=== PATIENT | female | born 1980 | race Native Hawaiian/Other Pacific Islander ===

== ENCOUNTER → 2016-05-30 | Outpatient (CLI) | payer OTHER ==
[~2016-05-30] MED LIST: FRS325T PO; IBP800T PO; PREN1TAB39 PO
--- OUTSIDE RECORDS SUMMARY | 2016-05-30 16:50 | XMS REPORT | Continuity of Care Document ---
Author Author [facility] Organization [facility] Address Unknown Phone Unavailable Allergies Active Description Code Type Severity Reaction Onset Reported/Identified Relationship to Patient Clinical Status Yes No Known Drug Allergies [id number] Drug Allergy Unknown N/ A 03/29/2010 Medications Problems Date Dx Coded Attending Type Code Diagnosis Diagnosed By 02/02/2009 438.85 Vertigo 02/02/2009 784.0 Headache 02/02/2009 438.85 Vertigo 02/02/2009 784.0 Headache 02/02/2009 438.85 Vertigo 02/02/2009 784.0 Headache 02/02/2009 438.85 Vertigo 02/02/2009 784.0 Headache 02/02/2009 438.85 Vertigo 02/02/2009 784.0 Headache 02/02/2009 438.85 Vertigo 02/02/2009 784.0 Headache 02/02/2009 438.85 Vertigo 02/02/2009 784.0 Headache 02/02/2009 438.85 Vertigo 02/02/2009 784.0 Headache 02/02/2009 438.85 Vertigo 02/02/2009 784.0 Headache 02/02/2009 WHITE DDS, JUAN JOSE J 438.85 Vertigo 02/02/2009 WHITE DDS, JUAN JOSE J 784.0 Headache 02/02/2009 MADL COOK MORNING, SOFYA L 438.85 Vertigo 02/02/2009 MADL COOK MORNING, SOFYA L 784.0 Headache 02/02/2009 MADL COOK MORNING, SOFYA L 438.85 Vertigo 02/02/2009 MADL COOK MORNING, SOFYA L 784.0 Headache 02/02/2009 TOVAR DOTRIXIEA K 438.85 Vertigo 02/02/2009 TOVAR DOBUD K 784.0 Headache 08/18/2009 787.02 Nausea Alone 08/18/2009 V72.42 Test Positive Result 08/18/2009 787.02 Nausea Alone 08/18/2009 V72.42 Test Positive Result 08/18/2009 787.02 Nausea Alone 08/18/2009 V72.42 Test Positive Result 08/18/2009 787.02 Nausea Alone 08/18/2009 V72.42 Test Positive Result 08/18/2009 787.02 Nausea Alone 08/18/2009 V72.42 Test Positive Result 08/18/2009 787.02 Nausea Alone 08/18/2009 V72.42 Test Positive Result 08/18/2009 787.02 Nausea Alone 08/18/2009 V72.42 Test Positive Result 08/18/2009 787.02 Nausea Alone 08/18/2009 V72.42 Test Positive Result 08/18/2009 787.02 Nausea Alone 08/18/2009 V72.42 Test Positive Result 08/18/2009 WHITE DDS, JUAN JOSE J 787.02 Nausea Alone 08/18/2009 WHITE DDS, JUAN JOSE J V72.42 Test Positive Result 08/18/2009 MADL COOK MORNING, SOFYA L 787.02 Nausea Alone 08/18/2009 MADL COOK MORNING, SOFYA L V72.42 Test Positive Result 08/18/2009 MADL COOK MORNING, SOFYA L 787.02 Nausea Alone 08/18/2009 MADL COOK MORNING, SOFYA L V72.42 Test Positive Result 08/18/2009 TOVAR DO BUD K 787.02 Nausea Alone 08/18/2009 TOVAR DO, BUD K V72.42 Test Positive Result 09/08/2009 787.01 Nausea With Vomiting 09/08/2009 V22.1 Pc Other Normal 09/08/2009 787.01 Nausea With Vomiting 09/08/2009 V22.1 Pc Other Normal 09/08/2009 787.01 Nausea With Vomiting 09/08/2009 V22.1 Pc Other Normal 09/08/2009 787.01 Nausea With Vomiting 09/08/2009 V22.1 Pc Other Normal 09/08/2009 787.01 Nausea With Vomiting 09/08/2009 V22.1 Pc Other Normal 09/08/2009 787.01 Nausea With Vomiting 09/08/2009 V22.1 Pc Other Normal 09/08/2009 787.01 Nausea With Vomiting 09/08/2009 V22.1 Pc Other Normal 09/08/2009 787.01 Nausea With Vomiting 09/08/2009 V22.1 Pc Other Normal 09/08/2009 787.01 Nausea With Vomiting 09/08/2009 V22.1 Pc Other Normal 09/08/2009 WHITE DDS, JUAN JOSE J 787.01 Nausea With Vomiting 09/08/2009 WHITE DDS, JUAN JOSE J V22.1 Pc Other Normal 09/08/2009 MADL COOK MORNING, SOFYA L 787.01 Nausea With Vomiting 09/08/2009 MADL COOK MORNING, SOFYA L V22.1 Pc Other Normal 09/08/2009 MADL COOK MORNING, SOFYA L 787.01 Nausea With Vomiting 09/08/2009 MADL COOK MORNING, SOFYA L V22.1 Pc Other Normal 09/08/2009 TOVAR DOTRIXIEA K 787.01 Nausea With Vomiting 09/08/2009 TOVAR DOBUD K V22.1 Pc Other Normal 11/10/2009 079.98 Chlamydia 11/10/2009 V72.31 Cake Stripper Exam, Routine 11/10/2009 V74.5 Std Screen 11/10/2009 079.98 Chlamydia 11/10/2009 V72.31 Cake Stripper Exam, Routine 11/10/2009 V74.5 Std Screen 11/10/2009 079.98 Chlamydia 11/10/2009 V72.31 Cake Stripper Exam, Routine 11/10/2009 V74.5 Std Screen 11/10/2009 079.98 Chlamydia 11/10/2009 V72.31 Cake Stripper Exam, Routine 11/10/2009 V74.5 Std Screen 11/10/2009 079.98 Chlamydia 11/10/2009 V72.31 Cake Stripper Exam, Routine 11/10/2009 V74.5 Std Screen 11/10/2009 079.98 Chlamydia 11/10/2009 V72.31 Cake Stripper Exam, Routine 11/10/2009 V74.5 Std Screen 11/10/2009 079.98 Chlamydia 11/10/2009 V72.31 Cake Stripper Exam, Routine 11/10/2009 V74.5 Std Screen 11/10/2009 079.98 Chlamydia 11/10/2009 V72.31 Cake Stripper Exam, Routine 11/10/2009 V74.5 Std Screen 11/10/2009 079.98 Chlamydia 11/10/2009 V72.31 Cake Stripper Exam, Routine 11/10/2009 V74.5 Std Screen 11/10/2009 WHITE DDS, JUAN JOSE J 079.98 Chlamydia 11/10/2009 WHITE DDS, JUAN JOSE J V72.31 Cake Stripper Exam, Routine 11/10/2009 WHITE DDS, JUAN JOSE J V74.5 Std Screen 11/10/2009 MADL COOK MORNING, SOFYA L 079.98 Chlamydia 11/10/2009 MADL COOK MORNING, SOFYA L V72.31 Cake Stripper Exam, Routine 11/10/2009 MADL COOK MORNING, SOFYA L V74.5 Std Screen 11/10/2009 MADL COOK MORNING, SOFYA L 079.98 Chlamydia 11/10/2009 MADL COOK MORNING, SOFYA L V72.31 Cake Stripper Exam, Routine 11/10/2009 MADL COOK MORNING, SOFYA L V74.5 Std Screen 11/10/2009 TOVAR BUD NEWBY K 079.98 Chlamydia 11/10/2009 TOVAR DO BUD K V72.31 Cake Stripper Exam, Routine 11/10/2009 TOVAR DO BUD K V74.5 Std Screen 12/09/2009 V04.3 Rubella Non-immune - Need For Vaccination 12/09/2009 V04.3 Rubella Non-immune - Need For Vaccination 12/09/2009 V04.3 Rubella Non-immune - Need For Vaccination 12/09/2009 V04.3 Rubella Non-immune - Need For Vaccination 12/09/2009 V04.3 Rubella Non-immune - Need For Vaccination 12/09/2009 V04.3 Rubella Non-immune - Need For Vaccination 12/09/2009 V04.3 Rubella Non-immune - Need For Vaccination 12/09/2009 V04.3 Rubella Non-immune - Need For Vaccination 12/09/2009 V04.3 Rubella Non-immune - Need For Vaccination 12/09/2009 WHITE DDS, JUAN JOSE J V04.3 Rubella Non-immune - Need For Vaccination 12/09/2009 MADL COOK MORNING, SOFYA L V04.3 Rubella Non-immune - Need For Vaccination 12/09/2009 MADL COOK MORNING, SOFYA L V04.3 Rubella Non-immune - Need For Vaccination 12/09/2009 LA NEWBY BUD Tracey V04.3 Rubella Non-immune - Need For Vaccination 05/19/2010 V24.2 visit for: exam 05/19/2010 V72.31 ROUTINE PELVIC EXAM 05/19/2010 V74.5 visit for: screening exam bact/spirochetal venereal disease 05/19/2010 V24.2 visit for: exam 05/19/2010 V72.31 ROUTINE PELVIC EXAM 05/19/2010 V74.5 visit for: screening exam bact/spirochetal venereal disease 05/19/2010 V24.2 visit for: exam 05/19/2010 V72.31 ROUTINE PELVIC EXAM 05/19/2010 V74.5 visit for: screening exam bact/spirochetal venereal disease 05/19/2010 V24.2 visit for: exam 05/19/2010 V72.31 ROUTINE PELVIC EXAM 05/19/2010 V74.5 visit for: screening exam bact/spirochetal venereal disease 05/19/2010 V24.2 visit for: exam 05/19/2010 V72.31 ROUTINE PELVIC EXAM 05/19/2010 V74.5 visit for: screening exam bact/spirochetal venereal disease 05/19/2010 V24.2 VISIT FOR: EXAM 05/19/2010 V72.31 ROUTINE PELVIC EXAM 05/19/2010 V74.5 VISIT FOR: SCREENING EXAM BACT/SPIROCHETAL VENEREAL DISEASE 05/19/2010 V24.2 VISIT FOR: EXAM 05/19/2010 V72.31 ROUTINE PELVIC EXAM 05/19/2010 V74.5 VISIT FOR: SCREENING EXAM BACT/SPIROCHETAL VENEREAL DISEASE 05/19/2010 V24.2 VISIT FOR: EXAM 05/19/2010 V72.31 ROUTINE PELVIC EXAM 05/19/2010 V74.5 VISIT FOR: SCREENING EXAM BACT/SPIROCHETAL VENEREAL DISEASE 05/19/2010 V24.2 VISIT FOR: EXAM 05/19/2010 V72.31 ROUTINE PELVIC EXAM 05/19/2010 V74.5 VISIT FOR: SCREENING EXAM BACT/SPIROCHETAL VENEREAL DISEASE 05/19/2010 WHITE DDS, JUAN JOSE J V24.2 VISIT FOR: EXAM 05/19/2010 WHITE DDS, JUAN JOSE J V72.31 ROUTINE PELVIC EXAM 05/19/2010 WHITE DDS, JUAN JOSE J V74.5 VISIT FOR: SCREENING EXAM BACT/ SPIROCHETAL VENEREAL DISEASE 05/19/2010 MADL COOK MORNING, SOFYA L V24.2 VISIT FOR: EXAM 05/19/2010 MADL COOK MORNING, SOFYA L V72.31 ROUTINE PELVIC EXAM 05/19/2010 MADL COOK MORNING, SOFYA L V74.5 VISIT FOR: SCREENING EXAM BACT/SPIROCHETAL VENEREAL DISEASE 05/19/2010 MADL COOK MORNING, SOFYA L V24.2 VISIT FOR: EXAM 05/19/2010 MADL COOK MORNING, SOFYA L V72.31 ROUTINE PELVIC EXAM 05/19/2010 MADL COOK MORNING, SOFYA L V74.5 VISIT FOR: SCREENING EXAM BACT/SPIROCHETAL VENEREAL DISEASE 05/19/2010 BUD TOVAR DO K V24.2 VISIT FOR: EXAM 05/19/2010 BUD TOVAR DO V72.31 ROUTINE PELVIC EXAM 05/19/2010 BUD TOAVR DO K V74.5 VISIT FOR: SCREENING EXAM BACT/SPIROCHETAL VENEREAL DISEASE 06/11/2012 V72.42 TEST POSITIVE RESULT 06/11/2012 V72.42 TEST POSITIVE RESULT 06/11/2012 V72.42 TEST POSITIVE RESULT 06/11/2012 V72.42 TEST POSITIVE RESULT 06/11/2012 V72.42 TEST POSITIVE RESULT 06/11/2012 V72.42 TEST POSITIVE RESULT 06/11/2012 V72.42 TEST POSITIVE RESULT 06/11/2012 V72.42 TEST POSITIVE RESULT 06/11/2012 JUAN DESAISJUAN JOSE J V72.42 TEST POSITIVE RESULT 06/11/2012 MADL COOK MORNING, SOFYA L V72.42 TEST POSITIVE RESULT 06/11/2012 MADL COOK MORNING, SOFYA L V72.42 TEST POSITIVE RESULT 06/11/2012 BUD TOVAR DO K V72.42 TEST POSITIVE RESULT 06/15/2012 651.00 , HIGH RISK W/ MULTIPLE GESTATIONS 06/15/2012 651.00 , HIGH RISK W/ MULTIPLE GESTATIONS 06/15/2012 651.00 , HIGH RISK W/ MULTIPLE GESTATIONS 06/15/2012 651.00 , HIGH RISK W/ MULTIPLE GESTATIONS 06/15/2012 651.00 , HIGH RISK W/ MULTIPLE GESTATIONS 06/15/2012 651.00 , HIGH RISK W/ MULTIPLE GESTATIONS 06/15/2012 651.00 , HIGH RISK W/ MULTIPLE GESTATIONS 06/15/2012 JUAN JOSE MARTINEZ DDS 651.00 , HIGH RISK W/ MULTIPLE GESTATIONS 06/15/2012 MADL COOK MORNING, SOFYA L 651.00 , HIGH RISK W/ MULTIPLE GESTATIONS 06/15/2012 MADL COOK MORNING, SOFYA L 651.00 , HIGH RISK W/ MULTIPLE GESTATIONS 06/15/2012 BUD TOVAR DO 651.00 , HIGH RISK W/ MULTIPLE GESTATIONS 06/29/2012 V23.7 , HIGH RISK W/ INSUFFICIENT CARE 06/29/2012 V76.2 CERVICAL CANCER SCREENING (PAP SMEAR) 06/29/2012 V23.7 , HIGH RISK W/ INSUFFICIENT CARE 06/29/2012 V76.2 CERVICAL CANCER SCREENING (PAP SMEAR) 06/29/2012 V23.7 , HIGH RISK W/ INSUFFICIENT CARE 06/29/2012 V76.2 CERVICAL CANCER SCREENING (PAP SMEAR) 06/29/2012 V23.7 , HIGH RISK W/ INSUFFICIENT CARE 06/29/2012 V76.2 CERVICAL CANCER SCREENING (PAP SMEAR) 06/29/2012 V23.7 , HIGH RISK W/ INSUFFICIENT CARE 06/29/2012 V76.2 CERVICAL CANCER SCREENING (PAP SMEAR) 06/29/2012 V23.7 , HIGH RISK W/ INSUFFICIENT CARE 06/29/2012 V76.2 CERVICAL CANCER SCREENING (PAP SMEAR) 06/29/2012 JUAN JOSE MARTINEZ DDS V23.7 , HIGH RISK W/ INSUFFICIENT CARE 06/29/2012 JUAN JOSE MARTINEZ DDS V76.2 CERVICAL CANCER SCREENING (PAP SMEAR) 06/29/2012 MADL COOK MORNING, SOFYA L V23.7 , HIGH RISK W/ INSUFFICIENT CARE 06/29/2012 JODI COOK MORNING, SOFYA L V76.2 CERVICAL CANCER SCREENING (PAP SMEAR) 06/29/2012 MADL COOK MORNING, SOFYA L V23.7 , HIGH RISK W/ INSUFFICIENT CARE 06/29/2012 MADL COOK MORNING, SOFYA L V76.2 CERVICAL CANCER SCREENING (PAP SMEAR) 06/29/2012 BUD TOVAR DO V23.7 , HIGH RISK W/ INSUFFICIENT CARE 06/29/2012 BUD TOVAR DO V76.2 CERVICAL CANCER SCREENING (PAP SMEAR) 07/13/2012 V06.1 TDAP DX 07/13/2012 V77.1 DIABETES SCREENING 07/13/2012 V06.1 TDAP DX 07/13/2012 V77.1 DIABETES SCREENING 07/13/2012 V06.1 TDAP DX 07/13/2012 V77.1 DIABETES SCREENING 07/13/2012 V06.1 TDAP DX 07/13/2012 V77.1 DIABETES SCREENING 07/13/2012 V06.1 TDAP DX 07/13/2012 V77.1 DIABETES SCREENING 07/13/2012 WHITE DDSJUAN JOSE J V06.1 TDAP DX 07/13/2012 WHITE DDSJUAN JOSE J V77.1 DIABETES SCREENING 07/13/2012 MADL COOK MORNING, SOFYA L V06.1 TDAP DX 07/13/2012 MADL COOK MORNING, SOFYA L V77.1 DIABETES SCREENING 07/13/2012 MADL COOK MORNING, SOFYA L V06.1 TDAP DX 07/13/2012 MADL COOK MORNING, SOFYA L V77.1 DIABETES SCREENING 07/13/2012 BUD TOVAR DO V06.1 TDAP DX 07/13/2012 BUD TOVAR DO V77.1 DIABETES SCREENING 08/08/2012 623.5 LEUKORRHEA NOT SPECIFIED INFECTIVE 08/08/2012 623.5 LEUKORRHEA NOT SPECIFIED INFECTIVE 08/08/2012 623.5 LEUKORRHEA NOT SPECIFIED INFECTIVE 08/08/2012 623.5 LEUKORRHEA NOT SPECIFIED INFECTIVE 08/08/2012 WHITE DDS, JUAN JOSE J 623.5 LEUKORRHEA NOT SPECIFIED INFECTIVE 08/08/2012 MADL COOK MORNING, SOFYA L 623.5 LEUKORRHEA NOT SPECIFIED INFECTIVE 08/08/2012 MADL COOK MORNING, SOFYA L 623.5 LEUKORRHEA NOT SPECIFIED INFECTIVE 08/08/2012 BUD TOVAR DO 623.5 LEUKORRHEA NOT SPECIFIED INFECTIVE 08/22/2012 V28.6 GBS SCREENING 08/22/2012 V28.6 GBS SCREENING 08/22/2012 V28.6 GBS SCREENING 08/22/2012 JUAN JOSE MARTINEZ DDS V28.6 GBS SCREENING 08/22/2012 JODI PERALTASOFYA Wong L V28.6 GBS SCREENING 08/22/2012 MADTeo COOK MORNING, SOFYA L V28.6 GBS SCREENING 08/22/2012 BUD TOVAR DO V28.6 GBS SCREENING 09/05/2012 V02.51 GBS - CARRIER OR SUSPECTED CARRIER 09/05/2012 V02.51 GBS - CARRIER OR SUSPECTED CARRIER 09/05/2012 JUAN JOSE MARTINEZ DDS V02.51 GBS - CARRIER OR SUSPECTED CARRIER 09/05/2012 [facility] WongA L V02.51 GBS - CARRIER OR SUSPECTED CARRIER 09/05/2012 [facility] COOK [facility]ORN[facility], SOFYA L V02.51 GBS - CARRIER OR SUSPECTED CARRIER 09/05/2012 BUD TOVAR DO V02.51 GBS - CARRIER OR SUSPECTED CARRIER 09/28/2012 JUAN JOSE MARTINEZ DDS 646.60 COMPL OF - UTI 09/28/2012 ALLISONTeo COOK MORNINGSOFYA Wong L 646.60 COMPL OF - UTI 09/28/2012 [place]ISON[place] [place] WongA L 646.60 COMPL OF - UTI 09/28/2012 BUD TOVAR DO 646.60 COMPL OF - UTI 09/30/2012 BUD TOVAR DO Ot 285.9 ANEMIA NOS 09/30/2012 BUD TOVAR DO Ot 648.22 ANEMIA-DELIVERED W P/P 09/30/2012 BUD TOVAR DO Ot 648.91 OTH CURR COND-DELIVERED 09/30/2012 BUD TOVAR DO Ot 664.11 DEL W 2 DEG LACERAT-DEL 09/30/2012 BUD TOVAR DO Ot V02.51 GROUP B STREPT CARRIER/SUSPECTED CARRIER 09/30/2012 BUD TOVAR DO Ot V06.4 [id number] 09/30/2012 TOVAR DO, BUD K Ot V27.0 DELIVER-SINGLE LIVEBORN 01/15/2014 MADL COOK MORNING, SOFYA L 278.02 OVERWEIGHT 01/15/2014 MADL COOK MORNING, SOFYA L 709.01 VITILIGO 01/15/2014 MADL COOK MORNING, SOFYA L 724.2 BACK PAIN, LOWER 01/15/2014 MADL COOK MORNING, SOFYA L 780.79 OTHER MALAISE AND FATIGUE 01/15/2014 MADL COOK MORNING, SOFYA L 789.66 ABDOMINAL TENDERNESS EPIGASTRIC 01/15/2014 MADL COOK MORNING, SOFYA L 278.02 OVERWEIGHT 01/15/2014 MADL COOK MORNING, OSFYA L 709.01 VITILIGO 01/15/2014 MADL COOK MORNING, SOFYA L 724.2 BACK PAIN, LOWER 01/15/2014 MADL COOK MORNING, SOFYA L 780.79 OTHER MALAISE AND FATIGUE 01/15/2014 MADL COOK MORNING, SOFYA L 789.66 ABDOMINAL TENDERNESS EPIGASTRIC 01/15/2014 TOVAR DO, BUD K 278.02 OVERWEIGHT 01/15/2014 TOVAR DO, BUD K 709.01 VITILIGO 01/15/2014 TOVAR DO, BUD K 724.2 BACK PAIN, LOWER 01/15/2014 TOVAR DO, BUD K 780.79 OTHER MALAISE AND FATIGUE 01/15/2014 TOVAR DO, BUD K 789.66 ABDOMINAL TENDERNESS EPIGASTRIC Procedures Code Description [place] [address] URINE TEST (IN-HOUSE) 06/11/2012 45930 ROUTINE VENIPUNCTURE 06/15/2012 91843 US OB - COMPLETE >14 WEEKS 06/15/2012 39443 SYPHILLIS-STATE LAB 06/15/2012 08933 RUBELLA ANTIBODY, IGG 06/15/2012 06828 ANTIBODY SCREEN (order) 06/15/2012 17454 HEP B SURFACE ANTIGEN (STATE) 06/15/2012 68122 UA OB DIP 2012 07991 CBC 06/15/2012 24399 TSH 06/15/2012 93889 BLOOD TYPE/Rh FACTOR 06/15/2012 [id number] ANTIBODY SCREEN (RESULT ONLY) 06/15/2012 13625 HIV ANTIBODIES (RML) 06/15/2012 02076 CULTURE URINE 79820 UA OB DIP 2012 08233 TRICHOMONAS (IN-HOUSE) 06/29/2012 64954 GC/CHLAM PROBE (STATE) 07/02/2012 34189 PAP SMEAR 2012 Q0091 PAP SMEAR OBTAIN SMEAR 07/02/2012 42322 CULTURE UROGENITAL 07/02/2012 52964 ROUTINE VENIPUNCTURE 07/13/2012 22549 UA OB DIP 2012 91780 GLUCOSE SAJI 1 HOUR 07/13/2012 43532 UA OB DIP 2012 54785 CULTURE UROGENITAL 08/11/2012 41568 UA OB DIP 2012 43180 CULTURE GROUP B STREP VAG 08/24/2012 91792 UA OB DIP 2012 18095 UA OB DIP 2012 22857 UA OB DIP 2012 55851 NON-STRESS TEST 09/17/2012 75.69 REPAIR OB LACERATION NEC 09/29/2012 38814 XRAY LUMBAR SPINE 2 OR 3 VIEWS 01/15/2014 87176 ROUTINE VENIPUNCTURE 01/16/2014 14787 CBC 01/16/2014 1222858 GFR CALC (RESULT ONLY) 01/16/2014 37018 CMP 01/16/2014 56722 H PYLORI (IN-HOUSE) 01/16/2014 55781 LIPASE 2013 45571 VITAMIN D 25-HYDROXY (D2,D3, TOTAL) 01/16/2014 THYANA THYROID ANALYZER 01/16/2014 Results Encounters ACCT No. Visit Date/Time Discharge Status Pt. Type Provider Facility Loc./Unit Complaint [id number] 09/29/2012 01:16:00 2012 14:20:00 DIS Inpatient BUD TOVAR DO [facility] WS INDUCTION [id number] 05/30/2016 16:45:00 ACT Outpatient VIDYA YOUNG, LINDSEY Prather [facility] RAD DATING
--- NOTE | 2016-05-30 17:34 | Diagnostic Imaging Report ---
INDICATION: Evaluate size and dates. COMPARISON: None. DISCUSSION: Transabdominal sonographic evaluation of the gravid uterus was performed. Single live intrauterine at 17 weeks 0 days by sonographic measurements. EDC by today's ultrasound is 11/07/2016. The cervix measures 3.9 cm. heart rate measures 153 beats per minute. Biparietal diameter measures 3.8 cm. Head circumference measures 13.8 cm. Abdominal circumference measures 10.5 cm. Femur length measures 2.1 cm. Grade 1 placenta is located posteriorly with no placenta previa. IMPRESSION: 1. Single live intrauterine at 17 weeks 0 days by sonographic measurements. Dictated by: Dictated on workstation # [id number]
== END ==
LOC: RAD 16:45
PROVIDERS: ATTEND Family Medicine
DX: Z34.82 Encounter for supervision of other normal pregnancy, second trimester (principal)
CPT/HCPCS: 76805

== ENCOUNTER → 2016-08-23 | Outpatient (CLI) | payer OTHER ==
--- NOTE | 2016-08-23 14:46 | Diagnostic Imaging Report ---
INDICATION: survey. TECHNIQUE: Multiple real-time grayscale images were obtained over the gravid uterus. COMPARISON: 05/30/2016. FINDINGS: The heart rate is 142 BPM. The placenta is fundal. No placenta previa. Adequate amniotic fluid is seen. The TARAS is 10.8 cm. The cervix is 5.3 cm in length and is closed. The lateral ventricle is normal in size. The stomach, gallbladder, and 2 umbilical arteries are demonstrated. The four-chamber view, spine, and cord insertion are not well seen due to position. No hydronephrosis or cystic mass at the level of the kidneys is demonstrated. Biometrical measurements are as follows: Biparietal 7.63 cm, age 30 weeks 5 days. Head circumference 27.72 cm, age 30 weeks 3 days. Abdominal circumference 24.74 cm, age 29 weeks 0 days. Femur length 5.66 cm, age 29 weeks 6 days. Sonographic estimate age: 30 weeks 0 days. The sonographic age compares to a gestational age of 29 weeks and 1 day based on the LUIS of 11/07/2016. Sonographic estimated date of delivery: 11/01/2016. Estimated Weight: 1398 gm (+/- 204 gm). LMP percentile: 49%. heart rate: 142 beats per minute. number: 1 of 1. IMPRESSION: The four-chamber view, spine, and cord insertion are not well seen due to position. Consider a followup study for reevaluation. Dictated by: Dictated on workstation # [id number]
== END ==
LOC: RAD 10:48
PROVIDERS: ATTEND Family Medicine
DX: Z34.83 Encounter for supervision of other normal pregnancy, third trimester (principal); Z3A.30 30 weeks gestation of pregnancy
CPT/HCPCS: 76805

== ENCOUNTER → 2016-09-23 | Outpatient (CLI) | payer OTHER | LOC: LAB 10:35 | PROVIDERS: ATTEND Family Medicine | DX: O99.810 Abnormal glucose complicating pregnancy (principal); Z3A.00 Weeks of gestation of pregnancy not specified | CPT/HCPCS: 36415; 82951; 82952; 82962 ==

== ENCOUNTER → 2016-09-23 | Outpatient (CLI) | payer OTHER ==
--- NOTE | 2016-09-23 12:30 | Diagnostic Imaging Report ---
INDICATION: Incomplete survey, followup for spine, four-chamber view and cord insertion. TECHNIQUE: Multiple real-time grayscale images were obtained over the gravid uterus. COMPARISON: 08/23/2016. FINDINGS: heart rate is 138 beats minute. The placenta is posterior. No placenta previa. position is cephalic. The cervix is not well seen but appears to be closed and estimated length is around 4 cm. The cord insertion is still not well seen due to position. The four-chamber view and spine are better seen compared to the prior study with no definite abnormality. IMPRESSION: The four-chamber view and spine are better seen compared to the previous exam with no definite abnormality. The cord insertion is still not well seen. Dictated by: Dictated on workstation # [id number]
== END ==
LOC: RAD 10:44
PROVIDERS: ATTEND Family Medicine
DX: Z36 Encounter for antenatal screening of mother (principal); Z3A.00 Weeks of gestation of pregnancy not specified
CPT/HCPCS: 76816

== ENCOUNTER → 2016-11-04 | Outpatient (CLI) | payer OTHER, MEDICAID ==
[~2016-11-04] MED LIST changes: +HYDR-3812 PO; +IBUP-1773 PO
[2016-11-04 16:13] LABS: RED BLOOD COUNT 4.07 10^6/uL (4.35-5.85); RED CELL DISTRIBUTION WIDTH 13.4 % (10.0-14.5); WHITE BLOOD COUNT 8.7 10^3/uL (4.3-11.0)
[2016-11-04 16:34] LABS: ALANINE AMINOTRANSFERASE 7 U/L (0-55); ALBUMIN 3.1 GM/DL (3.2-4.5); ANION GAP 10 MMOL/L (5-14); ASPARTATE AMINO TRANSFERASE 14 U/L (5-34); BILIRUBIN,TOTAL 0.3 MG/DL (0.1-1.0); BLOOD UREA NITROGEN 8 MG/DL (7-18); BUN/CREATININE RATIO 13; CALCIUM 9.6 MG/DL (8.5-10.1); CARBON DIOXIDE 23 MMOL/L (21-32); CHLORIDE 103 MMOL/L (98-107); CREATININE SERUM 0.62 MG/DL (0.60-1.30); GFR ESTIMATED > 60; GLUCOSE 84 MG/DL (70-105); LACTATE DEHYDROGENASE 203 U/L (125-220); POTASSIUM 3.8 MMOL/L (3.6-5.0); SODIUM 136 MMOL/L (135-145); TOTAL PROTEIN 6.8 GM/DL (6.4-8.2); URIC ACID 5.1 MG/DL (2.6-7.2)
[2016-11-04 16:35] LABS: PROTEIN/CREATININE RATIO 1.92
== END ==
LOC: LAB 15:46
PROVIDERS: ATTEND Family Medicine
DX: O12.13 Gestational proteinuria, third trimester (principal); Z3A.00 Weeks of gestation of pregnancy not specified
CPT/HCPCS: 36415; 80053; 82570; 83615; 84156; 84550; 85027

== ENCOUNTER 2016-11-07 00:10 | Inpatient (IN) | payer OTHER, MEDICAID ==
[2016-11-07] VITALS (11 sets, daily range): BP systolic 118–142; BP diastolic 60–79
[~2016-11-07] VITALS: Ht 165.1 cm; Wt 96.6 kg
[~2016-11-07 00:10] MED LIST changes: -HYDR-3812 PO; -IBUP-1773 PO
[2016-11-07] MEDS ORDERED: OXYTOCIN/NORMAL SALINE 500 ML IV ONE (00:55)
[2016-11-07] MEDS ORDERED: D5 LR IV SOLUTION 1,000 ML IV ONE (00:55)
[2016-11-07] MEDS ORDERED: MEPIVACAINE (CARBOCAINE) 2% 50 ML VIAL ONE (00:56)
[2016-11-07] MEDS ORDERED: D5 LR IV SOLUTION 1,000 ML IV SCH (01:05)
--- NOTE | 2016-11-07 01:05 | History & Physical-OB ---
OB - Chief Complaint & HPI Date/Time Date of Admission: Date of Admission: Nov 07, 2016 at 00:11 Time Seen by Provider: 01:00 Chief Complaint/History OB-Reason for Admission/Chief: Onset of Labor Hx : 5 Hx Para: 4 Expected Date of Delivery: Nov 07, 2016 Gestational Age in Weeks: 40 Gestational Age in Days: 0 Admission Nurse Assessment Rev: Yes History of Labs GBS negative at 36 weeks gestation Allergies and Home Medications Allergies Coded Allergies: No Known Drug Allergies (Unverified , 03/29/10) Home Medications Ferrous Sulfate 325 Mg Tablet, 1 TAB PO BID, #30 (Reported) Ibuprofen 800 Mg Tab, 800 MG PO BID, #20 Ref 0 Prescribed by: ZULAY URENA on 09/30/12 1140 Vits W-Ca,Fe,Fa(<1MG) 1 Each Tablet, 1 EACH PO DAILY, (Reported) OB - History Hx of Present Care: Yes Ultrasounds: Normal mid trimester US Obstetrical Complications: None Medical Complications: None Obstetrical History Hx Termination: No Hx Multiple Gestation: No Hx Stillbirth: No Hx Complication: No Hx Induced Hypertens: No Hx Maternal Gestational Diabet: No Delivery History Hx Dystocia: No Hx Large For Gestational Age I: No Hx Small for Gestational Age I: No Hx Section: No Hx Vaginal Delivery Post C-Sec: No Hx Blood Disorders: No Patient Past Medical History no chronic medical problems OB - Admission Exam Physical Exam Date Seen by Provider: Nov 07, 2016 Time Seen by Provider: 01:00 HEENT: Moist Membranes Heart: Rhythm Normal Lungs: Clear Abdomen: Gravid Cervical Dilatation: 8cm Effacement: 100% Station: -2 Membranes: Intact Decelerations: No Decelerations Short Term Variability: Present Refrigerator Mover Variability: Average (6-25) Contractions on Admission: < 5 Minutes Apart Date/Time Contractions Began;: 1999 Intensity: Moderate OB - Assessment/Plan/Diagnosis Assessment Assessment: active labor (at 40 weeks) Plan Plan: Other (labor managment) LINDSEY DASILVA MD Nov 07, 2016 01:05
[2016-11-07 01:15] LABS: BASOPHILS % (AUTO) 0 % (0-10); EOSINOPHILS # (AUTO) 0.2 10^3/uL (0.0-0.3); EOSINOPHILS % (AUTO) 1 % (0-10); LYMPHOCYTES # (AUTO) 2.7 X 10^3 (1.0-4.0); LYMPHOCYTES % (AUTO) 21 % (12-44); MEAN CORPUSCULAR HEMOGLOBIN 29 PG (25-34); MEAN CORPUSCULAR HGB CONC 33 G/DL (32-36); MEAN CORPUSCULAR VOLUME 88 FL (80-99); MEAN PLATELET VOLUME 11.8 FL (7.4-10.4); MONOCYTES # (AUTO) 0.7 X 10^3 (0.0-1.0); MONOCYTES % (AUTO) 5 % (0-12); NEUTROPHILS # (AUTO) 9.2 X 10^3 (1.8-7.8); NEUTROPHILS % (AUTO) 72 % (42-75); PLATELET COUNT 221 10^3/uL (130-400); RED BLOOD COUNT 4.35 10^6/uL (4.35-5.85); RED CELL DISTRIBUTION WIDTH 13.5 % (10.0-14.5); WHITE BLOOD COUNT 12.8 10^3/uL (4.3-11.0)
--- NOTE | 2016-11-07 01:40 | OB Labor & Delivery Record ---
L&D History Date of Service Date of Service: Nov 07, 2016 History Expected Date of Delivery: Nov 07, 2016 Gestational Age in Weeks: 40 Hx : 5 Hx Para: 4 Complications Events: Routine care Operative Indications (Cesarea: N/A-Vaginal Delivery Intrapartal Events: None L&D Stage1 Stage One Onset of Labor - Date: Nov 07, 2016 Onset of Labor - Time: 20:00 Monitors and Tracing Monitor Mode: Internal Monitor Accelerations: Uniform Monitor Decelerations: None Water Control Supervisor Variability: Average (6-10) Short Term Variability: Present Presentation: Vertex Signs of Distress by FHT Signs of Distress no Rupture of Membranes Spontaneous Ruture of Membrane: No Amniotic Membrane Rupture Time: 01:00 Amniotic Membrane Fluid Desc.: Clear L&D Stage2 Stage Two Stage II Date: Nov 07, 2016 Stage II Time: 01:19 Monitors and Tracing Monitor Mode: Internal Monitor Accelerations: Uniform Monitor Decelerations: None Retirement Variability: Average (6-10) Short Term Variability: Present Position: Left Occiput Anterior Presentation: Vertex Signs of Distress by FHT Signs of Distress no Cord Descript/Complications Cord Vessel Description: 3 Vessels Delivery Type Infant Delivery Method: Spontaneous Vaginal Anterior Shoulder: Left Episiotomy/Perineal Laceration [place](s)/Extensions: Yes Episiotomy Description: Perineal Extension/lac, 1st degree Sutures Used: Vicryl Condition of Infant Delivery 1 minute Comment: 9 5 minute Comment: 9 Condition of Condition of : Living Exam: No Observed Abnormalities Resuscitation Resuscitation: N/A - Spontaneous Resp L&D Stage3 Stage Three Stage III Date: Nov 07, 2016 Stage III Time: 01:22 Pictocin Pitocin ml/hr: 125 Placenta Delivery Placenta Delivery: Spontaneous Delivery Summary Summary Vaginal blood loss >500ml: No 200 Condition of Delivery Examined: Cervix Examined Post Hemorrhage: No LINDSEY DASILVA MD Nov 07, 2016 01:40
[2016-11-07] MEDS ORDERED: OXYTOCIN/NORMAL SALINE 500 ML IV SCH (01:41)
[2016-11-07] MEDS ORDERED: MEASLES,MUMPS,RUBELLA 1 EA INJ SQ ONE (01:45)
[2016-11-07] MEDS ORDERED: HYDROcodone/APAP 5 MG/325 MG (LORTAB) TAB PO PRN (01:45)
[2016-11-07] MEDS ORDERED: TETANUS,DIPTH,PERTUSS P/F (BOOSTRIX) 0.5 ML VIAL IM ONE (01:45)
[2016-11-07] MEDS: IBUPROFEN 600 MG (MOTRIN) TAB PO SCH ×4 (02:39→20:47)
[2016-11-07] MEDS: WITCH HAZEL(TUCKS) 40 EA JAR TOP PRN (02:39)
[2016-11-07] MEDS: BENZOCAINE/MENTHOL (DERMOPLAST) 56 ML CAN TP PRN (02:40)
[2016-11-07] MEDS ORDERED: CATHETER FLUSH 10 ML SYR IV SCH (06:00)
[2016-11-07] MEDS: CATHETER FLUSH 10 ML SYR IV SCH ×2 (08:19→14:55)
[2016-11-07] MEDS ORDERED: MEASLES,MUMPS,RUBELLA 1 EA INJ ONE (08:34)
[2016-11-08 03:00] VITALS: BP 114/71
[2016-11-08] MEDS: IBUPROFEN 600 MG (MOTRIN) TAB PO SCH ×2 (03:07→09:46)
[2016-11-08 06:28] LABS: BASOPHILS # (AUTO) 0.1 10^3/uL (0.0-0.1); BASOPHILS % (AUTO) 0 % (0-10); EOSINOPHILS # (AUTO) 0.3 10^3/uL (0.0-0.3); EOSINOPHILS % (AUTO) 2 % (0-10); LYMPHOCYTES # (AUTO) 3.6 X 10^3 (1.0-4.0); LYMPHOCYTES % (AUTO) 26 % (12-44); MEAN CORPUSCULAR HEMOGLOBIN 29 PG (25-34); MEAN CORPUSCULAR HGB CONC 33 G/DL (32-36); MEAN CORPUSCULAR VOLUME 89 FL (80-99); MEAN PLATELET VOLUME 11.7 FL (7.4-10.4); MONOCYTES # (AUTO) 0.8 X 10^3 (0.0-1.0); MONOCYTES % (AUTO) 6 % (0-12); NEUTROPHILS # (AUTO) 8.8 X 10^3 (1.8-7.8); NEUTROPHILS % (AUTO) 65 % (42-75); PLATELET COUNT 223 10^3/uL (130-400); RED BLOOD COUNT 3.81 10^6/uL (4.35-5.85); RED CELL DISTRIBUTION WIDTH 13.5 % (10.0-14.5); WHITE BLOOD COUNT 13.5 10^3/uL (4.3-11.0)
--- NOTE | 2016-11-08 07:39 | Discharge Summary ---
Diagnosis/Chief Complaint Date of Admission Nov 07, 2016 at 00:11 Date of Discharge Nov 08, 2016 Admission Diagnosis Admission Diagnosis 1. IUP at 40 weeks. Discharge Diagnosis 1. IUP at 40 weeks. Chief Complaint/HPI Chief Complaint/HPI 36 yo who presents to L&D with uterine contractions. Discharge Summary-OBS Procedures 1. 2. Repair of 1st degree perineal laceration. Discharge Physical Examination Allergies: Coded Allergies: No Known Drug Allergies (Unverified , 03/29/10) Vitals & I&Os Vital Sign - Last 12Hours Date Time Temp Pulse Resp B/P (MAP) Pulse Ox O2 Delivery O2 Flow Rate FiO2 11/08/16 03:00 98.6 83 18 114/71 96 Room Air General Appearance: No Acute Distress HEENT: Mucous Memb Moist/[place] Respiratory: Clear to Auscultation Cardiovascular: Regular Rate Abdominal: Soft (with uterus firm) Hospital Course Labs Laboratory Tests 11/08/16 06:05: White Blood Count 13.5H, Red Blood Count 3.81L, Hemoglobin 11.2L, Hematocrit 34L , Mean Corpuscular Volume 89, Mean Corpuscular Hemoglobin 29, Mean Corpuscular Hemoglobin Concent 33, Red Cell Distribution Width 13.5, Platelet Count 223, Mean Platelet Volume 11.7H, Neutrophils (%) (Auto) 65, Lymphocytes (%) (Auto) 26 , Monocytes (%) (Auto) 6, Eosinophils (%) (Auto) 2, Basophils (%) (Auto) 0, Neutrophils # (Auto) 8.8H, Lymphocytes # (Auto) 3.6, Monocytes # (Auto) 0.8, Eosinophils # (Auto) 0.3, Basophils # (Auto) 0.1 Discharge Instructions to patient/family Please see electonic discharge instructions given to patient. Discharge Medications Reviewed and agree with Discharge Medication list on patient's Discharge Instruction sheet Clinical Quality Measures DVT/VTE Risk/Contraindication: Risk Factor Score Per Nursin RFS Level Per Nursing on Admit: 2=Moderate LINDSEY DASILVA MD Nov 08, 2016 07:39
[2016-11-08] MEDS ORDERED: HYDR-3812 PO (07:41)
[2016-11-08] MEDS ORDERED: IBUP-1773 PO (07:41)
--- NOTE | 2016-11-08 07:43 | Discharge Inst-Women's Service ---
Discharge Inst-Women's Serv Depart Medication/Instructions New, Converted or Re-Newed RX: RX on Chart Consults/Follow Up Additional Follow Up: Yes (with Dr Dasilva in 6 week.) Activity Activity: Activity as Tolerated Driving Instructions: You May Drive NO SMOKING: NO SMOKING Nothing Inside Vagina: No [place] (for 6 weeks.) Diet Discharge Diet: Regular Diet Return to The Hospital For: as below Symptoms to Report to : Bleeding Excessive, Pain Increased, Fever Over 101 Degrees F, Vaginal Discharge Foul For Any Problems or Questions: Contact Your Physician LINDSEY DASILVA MD Nov 08, 2016 07:43
[2016-11-08 09:46] VITALS: BP 129/65
[2016-11-08] MEDS: BENZOCAINE/MENTHOL (DERMOPLAST) 56 ML CAN TP PRN (17:07)
[2016-11-08] MEDS: WITCH HAZEL(TUCKS) 40 EA JAR TOP PRN (17:07)
== END 2016-11-08 17:30 | disposition home or self-care (01) | DRG 775 ==
LOC: LDRP 00:10 → WSo 00:10 → LDRP 00:11
PROVIDERS: ADMIT Family Medicine; ATTEND Family Medicine
PROC: 10E0XZZ Delivery of Products of Conception, External Approach (ICD-10-PCS; principal; 2016-11-07)
PROC: 0HQ9XZZ Repair Perineum Skin, External Approach (ICD-10-PCS; 2016-11-07)
DX: O70.0 First degree perineal laceration during delivery (principal); Z3A.40 40 weeks gestation of pregnancy; Z37.0 Single live birth; Z23 Encounter for immunization
CPT/HCPCS: 36415; 85025; 86850; 86900; 86901; 90707; 99212

== ENCOUNTER → 2020-09-22 | Outpatient (CLI) | payer MEDICAID, OTHER ==
[~2020-09-22] MED LIST changes: +ACHD5005 PO; +IBUP-1773 PO
--- NOTE | 2020-09-22 17:51 | Diagnostic Imaging Report ---
PROCEDURE: CT abdomen and pelvis without contrast. TECHNIQUE: Multiple contiguous axial images were obtained through the abdomen and pelvis without the use of intravenous contrast. Auto Exposure Controls were utilized during the CT exam to meet ALARA standards for radiation dose reduction. INDICATION: Epigastric pain as well as flank pain. COMPARISON: No prior studies are available for comparison. FINDINGS: Lung bases are clear. The liver demonstrates generalized low density consistent with hepatic steatosis. No discrete liver mass is detected. Gallbladder is unremarkable. Pancreas and spleen are unremarkable. No adrenal mass is identified. No renal calculi or hydronephrosis is seen. Aorta is nonaneurysmal. The small and large bowel loops are normal in caliber. There is no obstruction. Appendix is visualized in the right lower quadrant and appears unremarkable. There is no free fluid. The bladder is decompressed. The uterus and ovaries are unremarkable. No inflammatory changes are seen. IMPRESSION: 1. Hepatic steatosis. 2. No evidence of urinary tract calculi or obstruction. Dictated by: Dictated on workstation # [id number]
== END ==
LOC: RAD 16:45
PROVIDERS: ATTEND Nurse Practitioner
DX: K76.0 Fatty (change of) liver, not elsewhere classified (principal)
CPT/HCPCS: 74176